=== PATIENT | female | born 1995 | race Caucasian/White ===

== ENCOUNTER 2019-08-11 06:05 | Day surgery (SDC) | payer BC, OTHER ==
[~2019-08-11] VITALS: Ht 170.2 cm; Wt 88.6 kg
[2019-08-11] MEDS ORDERED: CAMRTAB PO (06:11)
[2019-08-11] MEDS ORDERED: ADACEL/BOOSTRIX VACCINE (DIPHTH/PERTUSS/ACELL/TETANUS)0.5ML SYR (90715) IM ONE (07:15)
[2019-08-11] MEDS ORDERED: ceFAZolin 2 GM/D5W 50 ML IV BAG (J0690 PER 500MG) As Ordered ONE (09:05)
[2019-08-11] MEDS ORDERED: ceFAZolin 2 GM/D5W 50 ML IV BAG (J0690 PER 500MG) IV ONE (09:39)
[2019-08-11] MEDS ORDERED: MIDAZOLAM INJ 2 MG/2 ML VIAL (J2250) As Ordered ONE (09:41)
[2019-08-11] MEDS ORDERED: fentaNYL 100 MCG/2 ML INJECTION (J3010) As Ordered ONE ×3 (09:41→10:36)
[2019-08-11] MEDS ORDERED: LIDOCAINE 2% INJ 100 MG/5 ML SDV (FOR ANES.) As Ordered ONE (09:41)
[2019-08-11] MEDS ORDERED: propofoL 200 MG/20 ML VIAL As Ordered ONE (09:41)
[2019-08-11] MEDS ORDERED: ONDANSETRON 4MG/2ML VIAL (J2405) As Ordered ONE (10:01)
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
[2019-08-11] MEDS ORDERED: PERCOCET 5MG/325MG TAB As Ordered ONE (10:36)
[2019-08-11] MEDS: fentaNYL 100 MCG/2 ML INJECTION (J3010) IV PRN ×4 (10:37→10:55)
[2019-08-11] MEDS: PERCOCET 5MG/325MG TAB PO PRN ×2 (10:41→11:30)
[2019-08-11] MEDS ORDERED: ONDANSETRON 4MG/2ML VIAL (J2405) IV PRN (10:45)
[2019-08-11] MEDS ORDERED: LR 1,000 ML IV SCH ×2 (10:45)
[2019-08-11] MEDS ORDERED: MORPHINE 10 MG/ML 1ML VIAL (J2270) As Ordered ONE (11:00)
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
[2019-08-11] MEDS: MORPHINE 2 MG/ML 1ML VIAL (J2270) IV PRN ×3 (11:01→11:17)
[2019-08-11 11:45] VITALS: BP 138/88
[2019-08-11 12:45] VITALS: BP_SYST 128; BP_SYST 136; BP_DIAS 48; BP_DIAS 70
--- NOTE | 2019-08-11 12:56 | REP ---
Right hand series: Limited study three views. History: Intraoperative imaging. ORIF right fifth metacarpal. 6 minutes 50 seconds of fluoroscopy time is reported. Findings: A sequence of three last image hold fluoroscopically obtained spot radiographs document pinning. Electronically Signed by Manuel Sevilla MD 08/11/2019 03:11 P
[2019-08-11] MEDS ORDERED: OXYC1TAB23 PO (13:42)
[2019-08-11] MEDS ORDERED: AUGM500T34 PO (13:42)
== END 2019-08-11 14:05 | disposition home or self-care (01) ==
LOC: M ED 06:05 → M SDC 08:12 → M PED 11:40 → M SDC 14:05
PROVIDERS: ATTEND Orthopaedic Surgery Sports Medicine
DX: S62.336B Displaced fracture of neck of fifth metacarpal bone, right hand, initial encounter for open fracture (principal); Y04.0XXA Assault by unarmed brawl or fight, initial encounter; Y92.511 Restaurant or cafe as the place of occurrence of the external cause; Y93.9 Activity, unspecified; Y99.9 Unspecified external cause status
CPT/HCPCS: 26615; 73140; 87070; 87075; 90471; 90715; 99284; J0690; J2250; J2270; J2405; J3010

== ENCOUNTER → 2022-02-15 | Outpatient (CLI) | payer BC ==
[~2022-02-15] MED LIST: AUGM500T34 PO; CAMRTAB PO; OXYC1TAB23 PO
== END ==
LOC: M PLALAB 15:13
PROVIDERS: ATTEND Advanced Practice Midwife
DX: Z34.81 Encounter for supervision of other normal pregnancy, first trimester (principal)

== ENCOUNTER 2022-06-19 13:17 | Outpatient (CLI) | payer BC, OTHER ==
[~2022-06-19] VITALS: Ht 170.2 cm; Wt 110.0 kg
[2022-06-19] MEDS ORDERED: ACET-897 PO (13:37)
[2022-06-19] MEDS ORDERED: PRENTAB9 PO (13:37)
[2022-06-19 13:38] VITALS: BP 128/61
[2022-06-19] MEDS ORDERED: HOME MED LIST COMPLETE! XX SCH (13:40)
== END 2022-06-19 15:37 | disposition home or self-care (01) ==
LOC: M LDO 13:17
PROVIDERS: ATTEND Obstetrics & Gynecology
DX: O36.8130 Decreased fetal movements, third trimester, not applicable or unspecified (principal); Z3A.30 30 weeks gestation of pregnancy
CPT/HCPCS: 59025; 76815; 76819; 76820; G0463

== ENCOUNTER 2022-07-26 09:13 | Inpatient (IN) | payer OTHER ==
[~2022-07-26] VITALS: Ht 170.2 cm; Wt 110.3 kg
[2022-07-26] VITALS (32 sets, daily range): BP systolic 95–175; BP diastolic 48–99
[~2022-07-26 09:13] MED LIST changes: +ACET-897 PO; +PRENTAB9 PO
[2022-07-26] MEDS ORDERED: HOME MED LIST COMPLETE! XX SCH (09:30)
[2022-07-26] MEDS ORDERED: PENICILLIN G POTASSIUM 5 MU IV 5 MU in D5W MINI-BAG PLUS 100 ML IV STA (10:59)
[2022-07-26] MEDS ORDERED: METHYLERGONOVINE MALEATE 0.2MG/ML 1ML VIAL IM PRN (11:00)
[2022-07-26] MEDS ORDERED: CARBOPROST TROMETHAMINE 250 MCG/ML AMP IM PRN (11:00)
[2022-07-26] MEDS ORDERED: TRANEXAMIC ACID INJection 1,000 MG in NS 100 ML IV PRN (11:00)
[2022-07-26] MEDS ORDERED: LIDOCAINE 1% MDV 20ML VIAL INFIL PRN (11:00)
[2022-07-26] MEDS ORDERED: OXYTOCIN DRIP 30 UNITS in IV 1 EA IV PRN ×4 (11:00)
[2022-07-26] MEDS ORDERED: OXYTOCIN INJ 10UNITS/ML 1ML VIAL IM PRN (11:00)
[2022-07-26] MEDS: BETAMETHASONE SOLUSPAN 6MG/ML 5ML VIAL IM SCH ×2 (11:57→23:59)
[2022-07-26] MEDS: miSOPROStol 50MCG 1/2 TABLET PO SCH ×3 (11:59→16:04)
[2022-07-26 12:01] LABS: HEMATOCRIT 36.1 % (36.0-47.0); HEMOGLOBIN 11.7 g/dl (12.0-15.5); MEAN CORPUSCULAR HEMOGLOBIN 26.3 pg (27.0-33.0); MEAN CORPUSCULAR HGB CONC 32.4 g/dl (32.0-36.5); MEAN CORPUSCULAR VOLUME 81.1 fl (80.0-96.0); PLATELET COUNT, AUTOMATED 336 10^3/uL (150-450); RED BLOOD COUNT 4.45 10^6/uL (4.00-5.40); WHITE BLOOD COUNT 11.6 10^3/uL (4.0-10.0)
[2022-07-26] MEDS: LR 1,000 ML IV SCH ×2 (12:01→23:59)
[2022-07-26] MEDS: PEN G POT 3,000,000 UNIT/50 ML 3,000,000 UNIT in IV 1 EA IV SCH ×2 (15:59→20:22)
[2022-07-26] MEDS ORDERED: PROMETHAZINE 25MG/ML 1ML VIAL IV ONE (18:30)
[2022-07-26] MEDS ORDERED: BUTORPHANOL 2 MG/ML 1ML VIAL IV ONE (18:30)
[2022-07-26] MEDS ORDERED: OXYTOCIN DRIP 30 UNITS in IV 1 EA IV SCH (21:20)
[2022-07-26] MEDS ORDERED: LR 1,000 ML IV SCH (21:20)
[2022-07-26] MEDS ORDERED: FENTANYL/ROPIVACAINE/NACL BAG 100 ML EPIDURAL SCH (21:25)
[2022-07-26] MEDS ORDERED: ePHEDrine SULFATE 25 MG/5 ML(5MG/ML) SYRINGE IVP PRN (21:25)
[2022-07-26] MEDS ORDERED: ONDANSETRON 4MG 2ML VIAL IV PRN (21:25)
[2022-07-26] MEDS ORDERED: LR 500 ML IV PRN (21:25)
[2022-07-26] MEDS ORDERED: EPIDURAL/PCA KEYS XX PRN (21:25)
[2022-07-26] MEDS ORDERED: NALOXONE INJ 0.4MG/1ML VIAL IV PRN (21:25)
[2022-07-26] MEDS ORDERED: diphenhydrAMINE 50MG/ML VIAL IV PRN (21:25)
[2022-07-27] MEDS: PEN G POT 3,000,000 UNIT/50 ML 3,000,000 UNIT in IV 1 EA IV SCH (00:30)
[2022-07-27] MEDS ORDERED: DIBUCAINE 1% OINTMENT 30GM TOP PRN (04:45)
[2022-07-27] MEDS ORDERED: METHYLERGONOVINE MALEATE 0.2 MG TAB PO PRN (04:45)
[2022-07-27] MEDS ORDERED: RHOGAM 300MCG (1500IU) INJ IM SCH (04:45)
[2022-07-27] MEDS ORDERED: DOCUSATE SODIUM 100MG CAPSULE PO PRN (04:45)
[2022-07-27] MEDS ORDERED: ACETAMINOPHEN TAB 650MG DOSE (2X325MG) PO PRN (04:45)
[2022-07-27] MEDS ORDERED: ACETAMINOPHEN 500 MG TAB PO PRN (04:45)
[2022-07-27] MEDS ORDERED: IBUPROFEN 600MG TAB PO PRN (04:45)
[2022-07-27] MEDS ORDERED: IBUPROFEN 800 MG TAB PO PRN (04:45)
[2022-07-27 06:24] VITALS: BP 126/60
[2022-07-27] MEDS: PRENATAL VITAMINS CHEWABLE TABLET PO SCH (12:11)
[2022-07-27 19:13] VITALS: BP 136/63
[2022-07-28 06:00] VITALS: BP 125/83
[2022-07-28] MEDS: PRENATAL VITAMINS CHEWABLE TABLET PO SCH (09:44)
[2022-07-28 18:00] VITALS: BP 124/83
[2022-07-29 06:30] VITALS: BP 111/59
[2022-07-29] MEDS ORDERED: MEASLES,MUMPS,RUBELLA VACCINE INJ (MMR-II) SC.IMMUN ONE (09:00)
[2022-07-29] MEDS: PRENATAL VITAMINS CHEWABLE TABLET PO SCH (09:35)
[2022-07-29] MEDS ORDERED: COLA100C5 PO (10:04)
[2022-07-29] MEDS ORDERED: ACET-683 PO (10:04)
[2022-07-29] MEDS ORDERED: IBUP-1022 PO (10:04)
== END 2022-07-29 12:00 | disposition home or self-care (01) | DRG 541 ==
LOC: M LDO 09:13 → M LDI 10:50 → EEVIPCON 10:50 → M OBS 07-27 06:17
PROVIDERS: ADMIT Advanced Practice Midwife; ATTEND Advanced Practice Midwife
PROC: 3E0P7GC Introduction of Other Therapeutic Substance into Female Reproductive, Via Natural or Artificial Opening (ICD-10-PCS; 2022-07-26)
PROC: 10E0XZZ Delivery of Products of Conception, External Approach (ICD-10-PCS; principal; 2022-07-27)
PROC: 0HQ9XZZ Repair Perineum Skin, External Approach (ICD-10-PCS; 2022-07-27)
PROC: 10D17Z9 Manual Extraction of Products of Conception, Retained, Via Natural or Artificial Opening (ICD-10-PCS; 2022-07-27)
DX: O42.013 Preterm premature rupture of membranes, onset of labor within 24 hours of rupture, third trimester (principal); Z3A.36 36 weeks gestation of pregnancy; Z37.0 Single live birth; O99.824 Streptococcus B carrier state complicating childbirth; O70.0 First degree perineal laceration during delivery; O73.1 Retained portions of placenta and membranes, without hemorrhage